=== PATIENT | female | born 1965 | race Caucasian/White ===

== ENCOUNTER 2019-12-03 08:24 | Outpatient (CLI) | payer OTHER, SELFPAY | END 2019-12-03 08:25 | disposition home or self-care (01) | PROVIDERS: PCP Family Medicine; Visit Provider Internal Medicine Gastroenterology | DX: Z01.818 Encounter for other preprocedural examination (principal); Z11.59 Encounter for screening for other viral diseases | CPT/HCPCS: 87635; C9803; U0003 ==

== ENCOUNTER 2019-12-06 01:07 | Day surgery (SDC) | payer OTHER, SELFPAY ==
[2019-11-29 13:26] VITALS: BMI 24.5
[2019-12-06 06:59] VITALS: BP 120/60; PULSE 67; RESP 18; TEMP 36.2; O2SAT 100
--- NOTE | 2019-12-06 07:02 | PM.HPGS ---
History of Present Illness History of Present Illness Consent: Risks, benefits, and alternatives have been discussed and questions answered. Patient agrees to proceed with procedure. Chief complaint: Neoplasm Screening Narrative: Savanah Cohn is a 54 year old W female referred for screening colonoscopy. Patient's last colonoscopy was 6 years ago at which time hyperplastic polyp was removed. However patient underwent a right breast lumpectomy for breast cancer year ago substernal radiation therapy. Genetic testing revealed positive colo rectal genetic test and she was referred for colonoscopy. [facility], LATER [facility] Family History Family History Father Family history of diabetes mellitus in first degree relative Family history of heart disease in male family member before age 55 Other Diabetes mellitus Hypertension Social History Social History Smoking status: Never smoker Alcohol intake: current Meds Home Medications and Allergies Home Medications Medication Instructions Recorded Confirmed Type anastrozole 1 mg PO DAILY 11/29/19 11/29/19 History cetirizine [Zyrtec] 10 mg PO DAILY 11/29/19 11/29/19 History lansoprazole 30 mg PO DAILY 11/29/19 11/29/19 History niacin 1,000 mg PO HS 11/29/19 11/29/19 History pravastatin 40 mg PO DAILY 11/29/19 11/29/19 History Allergies Allergy/AdvReac Type Severity Reaction Status Date / Time Penicillins Allergy Mild Rash Verified 12/06/19 06:58 Sulfa (Sulfonamide Allergy Mild Rash Verified 12/06/19 06:58 Antibiotics) sulfanilamide Allergy Mild Rash Verified 12/06/19 06:58 Vital Signs Vital Signs - 24 hr 12/06/19 06:59 Temperature 36.2 C L Pulse Rate 67 Respiratory Rate 18 Blood Pressure 120/60 Pulse Oximetry 100 Exam Const: Orientation/consciousness: patient oriented x3 Resp: Auscultation: clear to auscultation bilaterally Cardio: Rate: regular rate Rhythm: regular rhythm Heart sounds: no murmurs GI: GI Palp: Yes Soft to palpation, No Tenderness to palpation present (GI), Yes No hepatosplenomegaly present and No Palpable mass present Auscultation: normal bowel sounds Neuro: General: patient oriented x3 and no focal motor deficits Extrem: General: no pedal edema Assessment and Plan Additional Plan Screening colonoscopy in high risk patient secondary to positive genetic test for colorectal cancer she cannot recall which gene was +
[2019-12-06] MEDS: LACTATED RINGERS 1,000 ML 150 ML IV CONT (07:03)
--- NOTE | 2019-12-06 07:18 | P.PNAN_ITS ---
Anes - Initial Pre Proc Eval Procedure: Operation Date: 12/06/19 08:00 Proposed Procedures p Screening Colonoscopy - Chance Gu MD Date/Time: 12/06/19 07:18 Surgeon: Chance Gu MD Pre Op Diagnosis: Neoplasm Screening Patient Data Age: 54 Gender: F Height: 1.63 m Weight: 66.5 kg Last Vital Signs Temp 36.2 C L 12/06/19 06:59 Pulse 67 12/06/19 06:59 Resp 18 12/06/19 06:59 BP 120/60 12/06/19 06:59 Pulse Ox 100 12/06/19 06:59 Allergies Allergy/AdvReac Type Severity Reaction Status Date / Time Penicillins Allergy Mild Rash Verified 12/06/19 06:58 Sulfa (Sulfonamide Allergy Mild Rash Verified 12/06/19 06:58 Antibiotics) sulfanilamide Allergy Mild Rash Verified 12/06/19 06:58 Home Medications Medication Instructions Recorded Confirmed Type anastrozole 1 mg PO DAILY 11/29/19 11/29/19 History cetirizine [Zyrtec] 10 mg PO DAILY 11/29/19 11/29/19 History lansoprazole 30 mg PO DAILY 11/29/19 11/29/19 History niacin 1,000 mg PO HS 11/29/19 11/29/19 History pravastatin 40 mg PO DAILY 11/29/19 11/29/19 History Patient hx anesthesia problems: none Family hx anesthesia problems: none PMFSH Past Medical History Medical History (Updated 12/06/19 @ 07:18 by Willy Bartlett DO) GERD (gastroesophageal reflux disease) History of breast cancer Hyperlipidemia Family History Family History Father Family history of diabetes mellitus in first degree relative Family history of heart disease in male family member before age 55 Other Diabetes mellitus Hypertension Social History Social History Smoking status: Never smoker Alcohol intake: current Anes - Eval Final PreProcedure Day of Procedure 12/06/19 07:18 Patient weight: overweight Heart: regular rate and rhythm Lungs: clear to auscultation and normal air movement Airway: Mallampati scale class II Neurological: alert and oriented Last oral intake: >/= 8 hours ASA classification: II Emergent: no Anesthetic plan: proceed Anesthesia type and monitoring: general GIVS and standard monitoring Informed Consent: The patient's anesthetic plan and its attendant risks and benefits were discussed with the patient/family/POA. Questions were solicited an d answers provided to the satisfaction of the patient/family/POA.
[2019-12-06 08:29] VITALS: BP 95/50; PULSE 67; RESP 18; O2SAT 100
[2019-12-06 08:39] VITALS: BP 95/57; PULSE 71; RESP 18; O2SAT 100
[2019-12-06 08:49] VITALS: BP 93/50; PULSE 70; RESP 18; O2SAT 100
== END 2019-12-06 08:57 | disposition home or self-care (01) ==
PROVIDERS: PCP Family Medicine; Visit Provider Internal Medicine Gastroenterology
PROC: 0DJD8ZZ Inspection of Lower Intestinal Tract, Via Natural or Artificial Opening Endoscopic (ICD-10-PCS; CPT 45378; principal; 2019-12-06 08:00)
DX: Z12.11 Encounter for screening for malignant neoplasm of colon (principal); K63.5 Polyp of colon; K62.89 Other specified diseases of anus and rectum; K21.9 Gastro-esophageal reflux disease without esophagitis; E78.5 Hyperlipidemia, unspecified; Z85.3 Personal history of malignant neoplasm of breast
CPT/HCPCS: 45385; 88305; J2704; J7120

== ENCOUNTER 2020-11-16 08:13 | Emergency (ER) | payer OTHER, SELFPAY ==
--- NOTE | 2020-11-16 08:20 | ED.FEMALEGU ---
HPI - Female Genitourinary General Chief complaint: Urogenital-Female Stated complaint: UTI Time Seen by Provider: 11/16/20 08:18 Source: patient and RN notes reviewed Mode of arrival: ambulatory Limitations: no limitations History of Present Illness HPI Narrative: 55-year-old female presents with concern for urinary tract infection. She reports approximate 1 week history of malodorous urine, lower abdominal pressure. Reports history of urinary tract and kidney infections. She denies fever, flank pain, nausea, vomiting, abnormal vaginal discharge. Denies intervention. Reports history of hematuria at baseline. MD elicited complaint: UTI Related Data Home Medications Medication Instructions Recorded Confirmed Zyrtec 10 mg PO DAILY 11/29/19 11/16/20 anastrozole 1 mg PO DAILY 11/29/19 11/16/20 lansoprazole 30 mg PO DAILY 11/29/19 11/16/20 niacin 1,000 mg PO HS 11/29/19 11/16/20 pravastatin 40 mg PO DAILY 11/29/19 11/16/20 exemestane 25 mg PO DAILY 11/16/20 11/16/20 Allergies Allergy/AdvReac Type Severity Reaction Status Date / Time Penicillins Allergy Mild Rash Verified 11/16/20 08:32 Sulfa (Sulfonamide Allergy Mild Rash Verified 11/16/20 08:32 Antibiotics) sulfanilamide Allergy Mild Rash Verified 11/16/20 08:32 Review of Systems Review of Systems: Narrative: CONSTITUTIONAL: Denies malaise, chills, sweats, or fever. CARDIOVASCULAR: Denies chest pain, palpitations, or edema. RESPIRATORY: Denies cough or dyspnea. GASTROINTESTINAL: Denies abdominal pain, nausea, vomiting, diarrhea GENITOURINARY: Denies dysuria, frequency, urgency. Reports hematuria, malodorous urine, suprapubic pressure. SKIN: Denies rash or itching. MUSCULOSKELETAL: Denies flank pain or myalgia. All systems reviewed & are unremarkable except as noted in HPI and below PMFSH Past Medical History Medical History (Updated 11/16/20 @ 08:54 by Laure Godfrey NP) GERD (gastroesophageal reflux disease) History of breast cancer Hyperlipidemia Family History Family History Father Family history of diabetes mellitus in first degree relative Family history of heart disease in male family member before age 55 Other Diabetes mellitus Hypertension Social History Social History Smoking status: Never smoker Alcohol intake: current Comments At time of signature, agree with nursing past medical, surgical, social and family history. There is no relevant family history pertinent to the presenting complaint Exam Narrative: Exam Narrative: GENERAL: Well-appearing, well-nourished, and in no acute distress. HEAD: Normocephalic. EYES: PERRLA, conjunctivae clear. NECK: Supple. No lymphadenopathy CHEST: Clear to auscultation. No respiratory distress. HEART: Regular rate and rhythm. ABDOMEN: Soft, nontender upon palpation, nondistended, normal active bowel sounds, no palpable or pulsatile masses, no guarding. No CVA tenderness SKIN: Warm, dry, no rash. NEURO: Alert and oriented x3. PSYCH: Normal mood and affect Course Course Emergency Course: Patient is aware of diagnosis, understands and agrees to treatment plan. Anticipatory guidance given. Patient agrees to follow-up as directed and is aware of reasons to seek care at the emergency department. Portions of this record may have been created with voice recognition software Vital Signs Vital signs: Vital Signs Temperature 97.7 F 11/16/20 08:28 Pulse Rate 82 11/16/20 08:28 Respiratory Rate 16 11/16/20 08:28 Blood Pressure 132/74 11/16/20 08:28 Pulse Oximetry 98 11/16/20 08:28 Temperature 97.7 F 11/16/20 08:28 Pulse Rate 82 11/16/20 08:28 Respiratory Rate 16 11/16/20 08:28 Blood Pressure 132/74 11/16/20 08:28 Pulse Oximetry 98 11/16/20 08:28 Reviewed. MDM - Female Genitourinary MDM Narrative Medical decision making narrative
[2020-11-16 08:28] VITALS: BP 132/74; PULSE 82; RESP 16; TEMP 36.5; O2SAT 98
== END 2020-11-16 08:58 | disposition home or self-care (01) ==
PROVIDERS: Emergency Provider Nurse Practitioner; PCP Family Medicine
DX: R10.30 Lower abdominal pain, unspecified (principal); R82.90 Unspecified abnormal findings in urine; K21.9 Gastro-esophageal reflux disease without esophagitis; E78.5 Hyperlipidemia, unspecified; Z85.3 Personal history of malignant neoplasm of breast
CPT/HCPCS: 81003; 87086; 99213; G0463

== ENCOUNTER → 2021-06-18 16:14 | Outpatient (CLI) | payer OTHER, SELFPAY ==
--- NOTE | ~2021-06-18 | XR_ITS ---
EXAMINATION: XR wrist LT min 3V DATE: 06/18/2021 16:26 INDICATION: Left wrist pain. TECHNIQUE: 4 views of left wrist were obtained. COMPARISON: None. FINDINGS: Bone alignment is normal. No fracture. There is mild osteoarthritis of triscaphe joint and first carpometacarpal joint. IMPRESSION: 1. Mild polyarticular osteoarthritis. Reviewed, dictated and finalized at location A. ERCIAL ELECTRICIAN
== END ==
PROVIDERS: PCP Nurse Practitioner Family; Visit Provider Nurse Practitioner Family
DX: M17.12 Unilateral primary osteoarthritis, left knee (principal)
CPT/HCPCS: 73110

== ENCOUNTER → 2022-07-20 07:49 | Outpatient (CLI) | payer OTHER, SELFPAY ==
--- NOTE | ~2022-07-20 | MR_ITS ---
EXAMINATION: MR lumbar spine wo con DATE: 07/20/2022 08:22 INDICATION: Degeneration of lumbar disc. Low back pain. TECHNIQUE: Magnetic resonance imaging (MRI) of the lumbar spine was performed without intravenous con trast. Sequences included sagittal T2-weighted FSE, sagittal T2-weighted FS FSE, sagittal T1-weighted FSE, and axial T2-weighted FSE. COMPARISON: Lumbar spine radiograph 10/27/2012 FINDINGS: Bone alignment is normal. Vertebral body heights and intervertebral disc heights are normal . The distal spinal cord signal intensity is normal. The conus medullaris is at L1. The following dis c levels are specifically discussed: L1-L2: The disc does not extend beyond the endplate margin. There is mild bilateral facet joint osteo arthritis. There is no neural foraminal stenosis. There is no central canal stenosis. L2-L3: There is a left foraminal protrusion. There is mild bilateral facet joint osteoarthritis. Ther e is mild left neural foraminal stenosis. There is no central canal stenosis. L3-L4: The disc does not extend beyond the endplate margin. There is mild bilateral facet joint osteo arthritis. There is no neural foraminal stenosis. There is no central canal stenosis. L4-L5: The disc is bulging and has an annular fissure. There is severe bilateral facet joint osteoart hritis. There is mild bilateral neural foraminal stenosis. There is mild central canal stenosis. L5-S1: The disc is bulging and has an annular fissure. There is moderate bilateral facet joint osteoa rthritis. There is mild bilateral neural foraminal stenosis. There is mild central canal stenosis. IMPRESSION: 1. Mild lumbar spondylosis. Reviewed, dictated and finalized at location A. OYMENT CASE MANAGER IMPRESSION: 1. Mild lumbar spondylosis.
== END ==
PROVIDERS: PCP Family Medicine; Visit Provider Family Medicine
DX: M51.36 Other intervertebral disc degeneration, lumbar region (principal); M43.06 Spondylolysis, lumbar region
CPT/HCPCS: 72148

== ENCOUNTER 2024-05-15 08:56 | Outpatient (CLI) | payer OTHER, SELFPAY ==
--- NOTE | ~2024-05-15 | XR_ITS ---
Clinical Indication: Cough PA and lateral views of the chest: Comparison: None Findings: The lungs are clear, without evidence of focal consolidation or pleural effusion. Cardiome diastinal silhouette is within normal limits. Bones and soft tissues are unremarkable. Impression: Normal chest. Reviewed, dictated and finalized at location . Impression: Normal chest.
== END 2024-05-15 08:57 | disposition home or self-care (01) ==
LOC: MICIMG 08:57
PROVIDERS: PCP Family Medicine; Visit Provider Family Medicine
DX: R05.9 Cough, unspecified (principal); J02.9 Acute pharyngitis, unspecified
CPT/HCPCS: 71046